=== PATIENT | female | born 1980 | race Caucasian/White ===

== ENCOUNTER 2018-04-13 15:34 | Emergency (ER) | payer OTHER, SELFPAY ==
[2018-04-13 15:40] VITALS: BP 131/87; PULSE 120; RESP 20; TEMP 36.8; O2SAT 100
--- NOTE | 2018-04-13 15:44 | DI.RAD.S_ITS ---
PROCEDURE: XR CHEST 1V INDICATIONS: chest pain TECHNIQUE: One view of the chest was acquired. COMPARISON: [facility], , CHEST 2VW, 07/08/2014, 18:02. FINDINGS: Surgical changes and devices: None. Lungs and pleura: No pleural effusions or pneumothorax. Lungs are clear. Mediastinum: Mediastinal contours appear normal. Heart size is normal. Bones and chest wall: No suspicious bony lesions. Overlying soft tissues appear unremarkable. IMPRESSION: Negative chest. No acute cardiopulmonary process is evident. Dictated by: Javier Harry M.D. on 04/13/2018 at 15:19 Approved by: Javier Harry M.D. on 04/13/2018 at 15:20
[2018-04-13 16:06] LABS: Add Manual Diff / Slide Review NO; Basophils Percent Auto 0.4 % (0-2); Hematocrit 43.5 % (36-46); Lymphocytes Percent Auto 10.3 % (25-40); Mean Corpuscular HGB Conc 34.6 % (30-36); Mean Corpuscular Hemoglobin 31.1 PG (26-34); Mean Corpuscular Volume 90.1 fL (80-100); Monocytes Percent Auto 4.7 % (3-14); Neutrophils Absolute Auto 7000 /uL (1500-7000); Neutrophils Percent Auto 84.6 % (50-75); Platelet Count 317 X10^3/uL (150-400); Red Blood Cell Count 4.83 X10^6/uL (4.0-5.2); Red Cell Distribution Width 12.3 % (11.6-14.8); White Blood Cell Count 8.3 X10^3/uL (4.5-11.0)
[2018-04-13 16:17] LABS: Alanine Aminotransferase 29 IU/L (9-52); Albumin 4.9 g/dL (3.5-5.0); Albumin Globulin Ratio 1.4 (1.0-2.8); Alkaline Phosphatase 55 U/L (38-126); Aspartate Aminotransferase 20 IU/L (14-36); BUN Creatinine Ratio 15.7 (6-22); Bilirubin Total 0.2 mg/dL (0.2-1.3); Blood Urea Nitrogen 11 mg/dL (7-17); Calcium 9.4 mg/dL (8.4-10.2); Carbon Dioxide 28 mmol/L (22-32); Chloride 100 mmol/L (98-107); Estimated Glomerular Filt Rate > 60.0 mL/min (>60); Globulin 3.6 g/dL (1.7-4.1); Glucose 139 mg/dL (70-100); HEMOLYSIS < 15 (0-50); Potassium 3.6 mmol/L (3.4-5.1); Sodium 141 mmol/L (137-145); Total Protein 8.5 g/dL (6.3-8.2)
[2018-04-13] MEDS: MAG HYDROX/ALUMINUM/SIMETH SUS 20 ML, LIDOCAINE VISCOUS 2% 15 ML PO (16:22)
[2018-04-13 16:29] LABS: Troponin I < 0.012 ng/mL (0.01-0.034)
--- NOTE | 2018-04-13 17:08 | PC.NURSE ---
pt states CP has decreased after GI cocktail. provider aware. no new orders at this time.
[2018-04-13] MEDS: PANTOPRAZOLE 20 MG TABLET PO (17:47)
--- NOTE | 2018-04-13 18:07 | ED_ITS ---
HPI - Chest Pain General Chief Complaint: Chest Pain Stated Complaint: SEVERE CHEST PAIN Time Seen by Provider: 04/13/18 17:20 Source: patient Mode of arrival: ambulatory Limitations: no limitations History of Present Illness HPI narrative: This is a 37-year-old female comes to the emergency department with complaint of chest pain. Patient states that she started having symptoms about noon today. Patient states that she had just come back to work she has been on 2 weeks of leave. She has just been local but has been staying up very late and getting up late in the morning and had to switch back to very early mornings today. She drank a very large coffee and shortly afterwards felt very jittery and just not very well in general. Patient states that her symptoms started cause a little bit of stomach discomfort and then she started to feel like she was getting some heartburn. On the drive home a continued to seem worse and worse so she came to the emergency department. She denies any syncope , she denies any dizziness, she denies any shortness of breath, no vomiting. She has had some mild diarrhea but she states that is expected after she normally drinks coffee. Patient has not had any urinary symptoms. She has not had any long distance travel, she does not smoke any tobacco. She drinks very rare alcohol, no illicit. She does have some anxiety which she controls with yoga, essential oils but does not take any medications. She has 7 siblings none who have any cardiac, pulmonary or embolic history. Her dad did have heart attack and had a CABG at the age of 68. Patient had a GI cocktail here which did improve her symptoms but not totally resolve them. She has also been burping a lot. She denies any pain with deep inspiration. She denies any discomfort with her lower extremities. Related Data Previous Rx's Medication Instructions Recorded hydroxyzine HCl 25 mg PO BEDTIME PRN #5 tab 04/13/18 Allergies Allergy/AdvReac Type Severity Reaction Status Date / Time anthrax vaccine Allergy Verified 04/13/18 15:46 Latex, Natural Rubber Allergy Verified 04/13/18 15:46 Review of Systems Review of Systems ROS Unobtainable: All systems reviewed & are unremarkable except as noted in HPI and below Constitutional Denies chills, Denies fatigue, Denies fever(s), Denies lethargy and Denies weakness Cardiovascular Reports chest pain, Denies chest pain with activity, Denies diaphoresis, Denies syncope, Denies rapid heart rate, Denies edema, Denies irregular heart rhythm, Denies lightheadedness, Denies palpitations, Denies dyspnea, Denies dyspnea on exertion and Denies orthopnea Respiratory Denies change in phlegm color, Denies chest congestion, Denies cough, Denies excessive phlegm production, Denies dyspnea and Denies dyspnea on exertion Gastrointestinal Gastrointestinal: Denies abdominal pain, Denies change in bowel habits, Denies constipation, Reports heartburn, Denies diarrhea, Denies nausea and Denies vomiting Genitourinary Denies hematuria, Denies flank pain, Denies urinary incontinence and Denies urinary urgency Musculoskeletal Denies back pain Neurologic Denies syncope and Denies weakness Endocrine Denies fatigue and Denies palpitations PFSH Medical History Anxiety (Acute) Heart burn (Acute) Social History Smoking Status: Never smoker alcohol intake: current substance use type: does not use Exam Narrative Exam Narrative: GENERAL: Alert and oriented x three, well-nourished, well- appearing female in mild distress. HEENT: Head normocephalic, atraumatic, EOMI, pupils reactive, face symmetric, moist mucous membranes NECK: Supple, full range of motion CARDIOVASCULAR: Regular rate and rhythm without murmurs, rubs or gallops. RESPIRATORY: Breath sounds equal bilaterally, no wheezes rales or rhonchi. ABDOMEN: Soft, nontender. Normoactive bowel sounds all 4 quadrants. No guarding or rebound, rigidity, no mass : No CVA tenderness EXTREMITIES: Normal range of motion, no clubbing or edema. Neurovascularly intact NEUROLOGICAL: Cranial nerves II through XII grossly intact. Moving all extremities SKIN: Warm, dry, no petechiae, no rashes or lesions. Initial Vital Signs Initial Vital Signs: Vital Signs Temperature 98.3 F 04/13/18 15:40 Pulse Rate 120 H 04/13/18 15:40 Respiratory Rate 20 04/13/18 15:40 Blood Pressure 131/87 04/13/18 15:40 Pulse Oximetry 100 04/13/18 15:40 Scores HEART Score Heart Score history: Slightly Suspicious Heart Score EKG: Normal Heart Score Age: < 45 years old Heart Score risk factors: 1-2 risk factors Heart Score troponin: < or = to normal limit Heart Score Total: 1 Course Orders Ordered: ED Orders 04/13/18 15:42 EKG-12 Lead Stat 04/13/18 15:44 Chest [XR chest 1V] Stat 04/13/18 15:54 Complete Blood Count AUTO DIFF Stat Comprehensive Metabolic Panel Stat Troponin I Stat Discontinued Medications Al Hydrox/Mg Hydrox/Simethicone 20 ml/ Lidocaine HCl 15 ml 0 ml PO NOW ONE Stop: 04/13/18 16:22 Last Admin: 04/13/18 16:22 Dose: 35 ml Pantoprazole Sodium (Protonix) 20 mg PO NOW ONE Stop: 04/13/18 17:42 Last Admin: 04/13/18 17:47 Dose: 20 mg Vital Signs - 8 hr 04/13/18 15:40 Temperature 98.3 F Pulse Rate 120 H Respiratory Rate 20 Blood Pressure 131/87 Pulse Oximetry 100 MDM - Chest Pain Lab Data Attestation: I reviewed the patient's lab results. Result diagrams: 04/13/18 15:54 04/13/18 15:54 Lab Results 04/13/18 04/13/18 Range/Units 15:54 15:54 WBC 8.3 (4.5-11.0) X10^3/uL RBC 4.83 (4.0-5.2) X10^6/uL Hgb 15.0 (12.0-16.0) g/dL Hct 43.5 (36-46) % MCV 90.1 (80-100) fL MCH 31.1 (26-34) PG MCHC 34.6 (30-36) % RDW 12.3 (11.6-14.8) % Plt Count 317 (150-400) X10^3/uL Neut % (Auto) 84.6 H (50-75) % Lymph % (Auto) 10.3 L (25-40) % [place] % (Auto) 4.7 (3-14) % Eos % (Auto) 0.0 L (2-4) % Baso % (Auto) 0.4 (0-2) % Neut # (Auto) 7000 (6797-8514) /uL Sodium 141 (137-145) mmol/L Potassium 3.6 (3.4-5.1) mmol/L Chloride 100 (98-107) mmol/L Carbon Dioxide 28 (22-32) mmol/L BUN 11 (7-17) mg/dL Creatinine 0.70 (0.52-1.04) mg/dL Estimated GFR > 60.0 (>60) mL/min BUN/Creatinine Ratio 15.7 (6-22) Glucose 139 H (70-100) mg/dL Calcium 9.4 (8.4-10.2) mg/dL Total Bilirubin 0.2 (0.2-1.3) mg/dL AST 20 (14-36) IU/L ALT 29 (9-52) IU/L Alkaline Phosphatase 55 (38-126) U/L Troponin I < 0.012 (0.01-0.034) ng/mL Total Protein 8.5 H (6.3-8.2) g/dL Albumin 4.9 (3.5-5.0) g/dL Globulin 3.6 (1.7-4.1) g/dL Albumin/Globulin Ratio 1.4 (1.0-2.8) Urine Dip Bedside Urine Glucose Negative Bedside Urine Bilirubin - Negative Bedside Urine Ketone - Negative Urine Specific [place] 1.015 Bedside Urine Occult Blood - Negative Bedside Urine pH 5.5 Bedside Urine Protein - Negative Bedside Urine Urobilinogen - Negative Bedside Urine Nitrite - Negative Bedside Urine Leukocytes - Negative Esterase MDM Narrative Medical decision making narrative: Discussed with patient she sounds low risk was improved with a GI cocktail. She would like to return home at this time. We discussed having her restart her Nexium. Decreasing her caffeine intake as she has not been taking drinking any for about 2 weeks and just had a large glass today as this might have been part of her symptoms. Patient can continue times at home. She did ask about taking something to help her sleep tonight we discussed she can try some hydroxyzine or she does not want to fill the prescription could try a dose of Benadryl. Patient does not want anything for anxiety otherwise at this time. We did discuss she needs to follow up. We also discussed there is always risk that there can be a cardiac event or other cause and that she should return if she is having any worsening symptoms. Discharge Plan Departure Patient Disposition: Home Clinical Impression: Chest pain Instructions: DI for Chest Pain Activity Restrictions/Additional Instructions: Follow-up with your primary care in the next week for recheck. Restart your nexium and continue once daily. I also recommend avoiding large amounts of coffee. Return for worsening symptoms, new or worsening chest, shortness of breath, passing out, nausea, persistent vomiting or other new or concerning symptoms. Prescriptions: New hydroxyzine HCl 25 mg tablet 25 mg PO BEDTIME PRN (Reason: anxiety) Qty: 5 RF: 0
[2018-04-13 18:13] VITALS: BP 124/96; PULSE 72; RESP 18; TEMP 37; O2SAT 99
== END 2018-04-13 18:16 | disposition home or self-care (01) ==
PROVIDERS: Emergency Provider Emergency Medicine
DX: R07.9 Chest pain, unspecified (principal)
CPT/HCPCS: 71045; 80053; 81003; 84484; 85025; 93005; 99282; 99285

== ENCOUNTER 2018-12-14 13:28 | Emergency (ER) | payer OTHER, SELFPAY ==
[2018-12-14 13:35] VITALS: BP 120/72; PULSE 62; RESP 14; TEMP 36.7; O2SAT 100; BMI 27.3
[2018-12-14 13:48] LABS: RBC Urine None Seen (0-5/HPF)
[2018-12-14 13:56] LABS: Amorphous Sediment Urine 2+; Squamous Epithelial Cell Urine 1-5 /HPF (0-5/HPF); WBC Urine 1-5/HPF (0-5/HPF)
[2018-12-14 13:57] LABS: Bacteria Urine Few (2-10); Culture Indicated Urine Specimen Cultured; Mucus Urine 1+ (Negative)
--- NOTE | 2018-12-14 14:05 | DI.US.S_ITS ---
PROCEDURE: US ABDOMEN LIMITED INDICATIONS: RIGHT UPPER QUADRANT PAIN TECHNIQUE: Real-time focused scanning was performed of the abdomen, with image documentation. COMPARISON: None. FINDINGS: No gallstones. No gallbladder wall thickening, pericholecystic fluid or sonographic Mortensen's sign. Visualized liver is normal. Common bile duct is normal in caliber measuring 4.7 mm. Pancreas is not well seen. IMPRESSION: Normal gallbladder. No gallstones or findings to suggest acute cholecystitis. No ultrasound findings to explain right upper quadrant pain. Dictated by: Renetta Prescott M.D. on 12/14/2018 at 13:58 Approved by: Renetta Prescott M.D. on 12/14/2018 at 14:00
--- NOTE | 2018-12-14 14:08 | ED_ITS ---
HPI - Abdominal Pain <IKER Anderson - Last Filed: 12/14/18 21:40> General Chief Complaint: Abdominal Pain Stated Complaint: Severe Pain on Right Side Time Seen by Provider: 12/14/18 13:38 Source: patient Mode of arrival: ambulatory History of Present Illness HPI narrative: 38-year-old female presents emergency department today complaining of diarrhea starting this morning around 7:00 a.m. with increasing p ain in her right upper quadrant. She describes the pain as a dull aching /10 and is unsure if she has any aggravating or alleviating symptoms. She states she has associated nausea without vomiting. Patient denies fevers, chills, chest pain, shortness of breath, blood in her stool, headaches, vision changes, orthopnea, dizziness, or syncope. Related Data Home Medications Medication Instructions Recorded Confirmed clindamycin-benzoyl peroxide 1 applic TOPICAL PRN PRN 12/14/18 12/14/18 Previous Rx's Medication Instructions Recorded hydroxyzine HCl 25 mg PO BEDTIME PRN #5 tab 04/13/18 Allergies Allergy/AdvReac Type Severity Reaction Status Date / Time anthrax vaccine Allergy Verified 12/14/18 13:46 Latex, Natural Rubber Allergy Verified 12/14/18 13:46 Review of Systems <IKER Anderson - Last Filed: 12/14/18 21:40> Review of Systems Narrative: REVIEW OF SYSTEMS: GENERAL: Denies fever, chills, malaise, or wt. loss. HENT: No head trauma, sore throat, or dysphagia. EYES: No loss of vision, double vision, eye pain, or irritation. CARDIOVASCULAR: No chest pain, palpitations, or orthopnea. RESPIRATORY: No shortness of breath or cough. GASTROINTESTINAL: Complains of right-sided abdominal pain and diarrhea, see HPI GENITOURINARY: No flank pain, urinary incontinence, hesitancy, frequency, or dysuria. No vaginal discharge or dyspareunia. MUSCULOSKELETAL: No pain, weakness, or trauma. INTEGUMENTARY: No rash, lesions, or pruritus. NEURO: No numbness, tingling, memory loss, confusion, or headaches. PSYCH: No behavior or mood changes. PFSH <IKER Anderson - Last Filed: 12/14/18 21:40> Medical History Anxiety (Acute) Heart burn (Acute) Social History Smoking Status: Never smoker alcohol intake: current substance use type: does not use Social History Smoking Status: Never smoker alcohol intake: current substance use type: does not use Exam <IKER Anderson - Last Filed: 12/14/18 21:40> Initial Vital Signs Initial Vital Signs: Vital Signs Temperature 98.1 F 12/14/18 13:35 Pulse Rate 62 12/14/18 13:35 Respiratory Rate 14 12/14/18 13:35 Blood Pressure 120/72 12/14/18 13:35 Pulse Oximetry 100 12/14/18 13:35 PHYSICAL EXAMINATION: GENERAL: Well groomed, alert, and cooperative. Answers questions promptly and appropriately. Vital signs noted. HENT: Normocephalic, atraumatic. Hearing intact. Oral mucosa is pink and moist. EYES: Conjunctiva pink, sclera white, no periorbital swelling. CARDIOVASCULAR: S1 and S2 sounds normal. Regular rate and rhythm, no murmurs, clicks, or bruits. No pedal edema. RESPIRATORY: Normal respiratory rate, trachea midline, airway patent. No stridor, nasal flaring or accessory muscle use. Lungs are clear in all [place] wi thout wheeze, rhonchi, or crackles. GASTROINTESTINAL: Bowel sounds normoactive. Abdomen is soft, patient complains of right upper quadrant tenderness. No organomegaly, no palpable masses. GENITALURINARY: No flank tenderness. MUSCULOSKELETAL: Normal gait and coordination. Equal tone and mass bilaterally. EXTREMITIES: CMS intact, no pedal edema. SKIN: Warm, dry, soft, appropriate color for ethnicity. No lesions, rashes, or wounds. NEURO: Alert and Oriented X 3. Good coordination. No ataxia, or sensory deficits, or cognitive issues. PSYCH: Appropriate affect and mood. <Em Hayes MD - Last Filed: 12/15/18 07:11> Initial Vital Signs Initial Vital Signs: Vital Signs Temperature 98.1 F 12/14/18 13:35 Pulse Rate 62 12/14/18 13:35 Respiratory Rate 14 12/14/18 13:35 Blood Pressure 120/72 12/14/18 13:35 Pulse Oximetry 100 12/14/18 13:35 Course <IKER Anderson - Last Filed: 12/14/18 21:40> Course Course Narrative: Abdominal ultrasound was ordered due to patient's right upper quadrant pain. Patient denied needing any medications for nausea. Orders Ordered: Discontinued Medications Sodium Chloride (Normal Saline 0.9%) 1,000 mls @ 1,000 mls/hr IV BOLUS ONE Stop: 12/14/18 15:04 Last Infusion: 12/14/18 15:57 Dose: 0 mls/hr Documented by: Admin: 12/14/18 15:01 Dose: 1,000 mls/hr Documented by: ALEXEI Reevaluation(s) Reevaluation #1: Upon re-evaluation, patient stated she was feeling the same. She denied needing any medications at this time. Vital Signs Vital signs: Vital Signs - 8 hr 12/14/18 14:53 12/14/18 15:56 Pulse Rate 65 68 Respiratory Rate 16 14 Blood Pressure 111/65 Blood Pressure [Right Arm] 114/72 Pulse Oximetry 100 100 <Em Hayes MD - Last Filed: 12/15/18 07:11> Orders Ordered: Discontinued Medications Sodium Chloride (Normal Saline 0.9%) 1,000 mls @ 1,000 mls/hr IV BOLUS ONE Stop: 12/14/18 15:04 Last Infusion: 12/14/18 15:57 Dose: 0 mls/hr Documented by: Admin: 12/14/18 15:01 Dose: 1,000 mls/hr Documented by: ALEXEI Vital Signs Vital signs: Vital Signs - 8 hr 12/14/18 14:53 12/14/18 15:56 Pulse Rate 65 68 Respiratory Rate 16 14 Blood Pressure 111/65 Blood Pressure [Right Arm] 114/72 Pulse Oximetry 100 100 MDM - Abdominal Pain <IKER Anderson - Last Filed: 12/14/18 21:40> Medical Records Attestation: I reviewed the patient's medical records. Lab Data Attestation: I reviewed the patient's lab results. Result diagrams: 12/14/18 13:55 12/14/18 13:55 Labs: Lab Results 12/14/18 12/14/18 12/14/18 Range/Units 13:34 13:55 13:55 WBC 5.3 (4.5-11.0) X10^3/uL RBC 4.53 (4.0-5.2) X10^6/uL Hgb 14.1 (12.0-16.0) g/dL Hct 41.0 (36-46) % MCV 90.6 (80-100) fL MCH 31.0 (26-34) PG MCHC 34.3 (30-36) % RDW 12.7 (11.6-14.8) % Plt Count 268 (150-400) X10^3/uL Neut % (Auto) 67.1 (50-75) % Lymph % (Auto) 22.8 L (25-40) % [place] % (Auto) 7.8 (3-14) % Eos % (Auto) 1.8 L (2-4) % Baso % (Auto) 0.5 (0-2) % Neut # (Auto) 3500 (5164-2732) /uL Lymph # (Auto) 1200 (3018-7682) /uL [place] # (Auto) 400 (0-900) /uL Eos # (Auto) 100 (0-450) /uL Baso # (Auto) 0 (0-100) /uL PT 12.1 (10.1-12.7) SECONDS INR 1.0 (0.9-1.3) APTT 38 H (26.4-36.2) SECONDS Sodium (137-145) mmol/L Potassium (3.4-5.1) mmol/L Chloride (98-107) mmol/L Carbon Dioxide (22-32) mmol/L BUN (7-17) mg/dL Creatinine (0.52-1.04) mg/dL Estimated GFR (>60) mL/min BUN/Creatinine Ratio (6-22) Glucose (70-100) mg/dL Calcium (8.4-10.2) mg/dL Total Bilirubin (0.2-1.3) mg/dL AST (14-36) IU/L ALT (9-52) IU/L Alkaline Phosphatase (38-126) U/L Total Protein (6.3-8.2) g/dL Albumin (3.5-5.0) g/dL Globulin (1.7-4.1) g/dL Albumin/Globulin Ratio (1.0-2.8) Lipase (23-300) U/L Urine RBC None seen (0-5/HPF) Urine WBC 1-5/hpf (0-5/HPF) Ur Squamous Epith Cells 1-5 /hpf (0-5/HPF) Amorphous Sediment 2+ Urine Bacteria Few (2-10) H (None) Urine Mucus 1+ H (Negative) Ur Culture Indicated? Specimen cultured 12/14/18 Range/Units 13:55 WBC (4.5-11.0) X10^3/uL RBC (4.0-5.2) X10^6/uL Hgb (12.0-16.0) g/dL Hct (36-46) % MCV (80-100) fL MCH (26-34) PG MCHC (30-36) % RDW (11.6-14.8) % Plt Count (150-400) X10^3/uL Neut % (Auto) (50-75) % Lymph % (Auto) (25-40) % [place] % (Auto) (3-14) % Eos % (Auto) (2-4) % Baso % (Auto) (0-2) % Neut # (Auto) (7454-8096) /uL Lymph # (Auto) (7085-6845) /uL [place] # (Auto) (0-900) /uL Eos # (Auto) (0-450) /uL Baso # (Auto) (0-100) /uL PT (10.1-12.7) SECONDS INR (0.9-1.3) APTT (26.4-36.2) SECONDS Sodium 142 (137-145) mmol/L Potassium 3.8 (3.4-5.1) mmol/L Chloride 105 (98-107) mmol/L Carbon Dioxide 28 (22-32) mmol/L BUN 14 (7-17) mg/dL Creatinine 0.70 (0.52-1.04) mg/dL Estimated GFR > 60.0 (>60) mL/min BUN/Creatinine Ratio 20.0 (6-22) Glucose 104 H (70-100) mg/dL Calcium 9.1 (8.4-10.2) mg/dL Total Bilirubin 0.5 (0.2-1.3) mg/dL AST 29 (14-36) IU/L ALT 28 (9-52) IU/L Alkaline Phosphatase 57 (38-126) U/L Total Protein 7.4 (6.3-8.2) g/dL Albumin 4.3 (3.5-5.0) g/dL Globulin 3.1 (1.7-4.1) g/dL Albumin/Globulin Ratio 1.4 (1.0-2.8) Lipase 67 (23-300) U/L Urine RBC (0-5/HPF) Urine WBC (0-5/HPF) Ur Squamous Epith Cells (0-5/HPF) Amorphous Sediment Urine Bacteria (None) Urine Mucus (Negative) Ur Culture Indicated? Point of care testing: Point of Care Testing Test Results Negative Urine Dip Bedside Urine Glucose Negative Bedside Urine Bilirubin - Negative Bedside Urine Ketone +/- 5 Urine Specific [place] 1.020 Bedside Urine Occult Blood - Negative Bedside Urine pH 6.5 Bedside Urine Protein +/- 15 Bedside Urine Urobilinogen +/- 1mg Bedside Urine Nitrite - Negative Bedside Urine Leukocytes +/- 15 Esterase Imaging Data Abd ultrasound: Radiologist's impression: [place] [address] Ultrasound Report Signed Patient: Julissa Mueller EMR#: [id number] : 1980Acct:[id number] Age/Sex: 38 / FDate of Service: 12/14/18 Loc: ED Accession Number: [id number] Procedure: US abdomen limited Ordering Provider: Martha Domínguez PROCEDURE: US ABDOMEN LIMITED INDICATIONS: RIGHT UPPER QUADRANT PAIN TECHNIQUE: Real-time focused scanning was performed of the abdomen, with image documentation. COMPARISON: None. FINDINGS: No gallstones. No gallbladder wall thickening, pericholecystic fluid or sonographic Mortensen's sign. Visualized liver is normal. Common bile duct is normal in caliber measuring 4.7 mm. Pancreas is not well seen. IMPRESSION: Normal gallbladder. No gallstones or findings to suggest acute cholecystitis. No ultrasound findings to explain right upper quadrant pain. Dictated by: Renetta Prescott M.D. on 12/14/2018 at 13:58 Approved by: Renetta Prescott M.D. on 12/14/2018 at 14:00 [facility] Narrative Medical decision making narrative: Differential includes urinary tract infection (less likely due to lack of symptoms, however due to minor findings and urine sample urine was cultured), cholelithiasis/cholecystitis (less likely due to negative ultrasound, non-remarkable lipase), appendicitis (less likely in due to normal white blood cell count, lack of right lower abdominal pain), renal calculi (less likely due to lack of flank pain), and gastritis (possibly due to short onset and description diarrhea), lactose intolerance (patient was concerned that this may be contributing to her diarrhea). I discussed with patient that further testing was needed to rule out other differential diagnosis. However, patient is hemodynamically stable of able to be discharged home. Strict return precautions given and follow-up instructions discussed. <Em Hayes MD - Last Filed: 12/15/18 07:11> Lab Data Labs: Lab Results 12/14/18 12/14/18 12/14/18 Range/Units 13:34 13:55 13:55 WBC 5.3 (4.5-11.0) X10^3/uL RBC 4.53 (4.0-5.2) X10^6/uL Hgb 14.1 (12.0-16.0) g/dL Hct 41.0 (36-46) % MCV 90.6 (80-100) fL MCH 31.0 (26-34) PG MCHC 34.3 (30-36) % RDW 12.7 (11.6-14.8) % Plt Count 268 (150-400) X10^3/uL Neut % (Auto) 67.1 (50-75) % Lymph % (Auto) 22.8 L (25-40) % [place] % (Auto) 7.8 (3-14) % Eos % (Auto) 1.8 L (2-4) % Baso % (Auto) 0.5 (0-2) % Neut # (Auto) 3500 (9669-4863) /uL Lymph # (Auto) 1200 (6266-0654) /uL [place] # (Auto) 400 (0-900) /uL Eos # (Auto) 100 (0-450) /uL Baso # (Auto) 0 (0-100) /uL PT 12.1 (10.1-12.7) SECONDS INR 1.0 (0.9-1.3) APTT 38 H (26.4-36.2) SECONDS Sodium (137-145) mmol/L Potassium (3.4-5.1) mmol/L Chloride (98-107) mmol/L Carbon Dioxide (22-32) mmol/L BUN (7-17) mg/dL Creatinine (0.52-1.04) mg/dL Estimated GFR (>60) mL/min BUN/Creatinine Ratio (6-22) Glucose (70-100) mg/dL Calcium (8.4-10.2) mg/dL Total Bilirubin (0.2-1.3) mg/dL AST (14-36) IU/L ALT (9-52) IU/L Alkaline Phosphatase (38-126) U/L Total Protein (6.3-8.2) g/dL Albumin (3.5-5.0) g/dL Globulin (1.7-4.1) g/dL Albumin/Globulin Ratio (1.0-2.8) Lipase (23-300) U/L Urine RBC None seen (0-5/HPF) Urine WBC 1-5/hpf (0-5/HPF) Ur Squamous Epith Cells 1-5 /hpf (0-5/HPF) Amorphous Sediment 2+ Urine Bacteria Few (2-10) H (None) Urine Mucus 1+ H (Negative) Ur Culture Indicated? Specimen cultured 12/14/18 Range/Units 13:55 WBC (4.5-11.0) X10^3/uL RBC (4.0-5.2) X10^6/uL Hgb (12.0-16.0) g/dL Hct (36-46) % MCV (80-100) fL MCH (26-34) PG MCHC (30-36) % RDW (11.6-14.8) % Plt Count (150-400) X10^3/uL Neut % (Auto) (50-75) % Lymph % (Auto) (25-40) % [place] % (Auto) (3-14) % Eos % (Auto) (2-4) % Baso % (Auto) (0-2) % Neut # (Auto) (5140-3778) /uL Lymph # (Auto) (6891-0386) /uL [place] # (Auto) (0-900) /uL Eos # (Auto) (0-450) /uL Baso # (Auto) (0-100) /uL PT (10.1-12.7) SECONDS INR (0.9-1.3) APTT (26.4-36.2) SECONDS Sodium 142 (137-145) mmol/L Potassium 3.8 (3.4-5.1) mmol/L Chloride 105 (98-107) mmol/L Carbon Dioxide 28 (22-32) mmol/L BUN 14 (7-17) mg/dL Creatinine 0.70 (0.52-1.04) mg/dL Estimated GFR > 60.0 (>60) mL/min BUN/Creatinine Ratio 20.0 (6-22) Glucose 104 H (70-100) mg/dL Calcium 9.1 (8.4-10.2) mg/dL Total Bilirubin 0.5 (0.2-1.3) mg/dL AST 29 (14-36) IU/L ALT 28 (9-52) IU/L Alkaline Phosphatase 57 (38-126) U/L Total Protein 7.4 (6.3-8.2) g/dL Albumin 4.3 (3.5-5.0) g/dL Globulin 3.1 (1.7-4.1) g/dL Albumin/Globulin Ratio 1.4 (1.0-2.8) Lipase 67 (23-300) U/L Urine RBC (0-5/HPF) Urine WBC (0-5/HPF) Ur Squamous Epith Cells (0-5/HPF) Amorphous Sediment Urine Bacteria (None) Urine Mucus (Negative) Ur Culture Indicated? Point of care testing: Point of Care Testing Test Results Negative Urine Dip Bedside Urine Glucose Negative Bedside Urine Bilirubin - Negative Bedside Urine Ketone +/- 5 Urine Specific [place] 1.020 Bedside Urine Occult Blood - Negative Bedside Urine pH 6.5 Bedside Urine Protein +/- 15 Bedside Urine Urobilinogen +/- 1mg Bedside Urine Nitrite - Negative Bedside Urine Leukocytes +/- 15 Esterase Discharge Plan Departure Patient Disposition: Home Clinical Impression: Diarrhea Qualifiers: Diarrhea type: unspecified type Qualified Code(s): R19.7 - Diarrhea, unspecified Discharge Date/Time: 12/14/18 15:57 Instructions: Diarrhea Activity Restrictions/Additional Instructions: Thank you for entrusting me with your care today. As discussed, your labs were negative for any concerning symptoms. However, there was a small amount of bacteria in your urine. We have sent your urine to be cultured the next 2 days, if it is positive we will call you with a script for antibiotics, if it is negative you will not be called. Please follow up with your primary care provider in the next week for re-evaluation especially if your symptoms are continuing. Return to the emergency department if you develop high fevers, uncontrollable vomiting, chest pain, shortness of breath, or other concerning symptoms. Prescriptions: No Action hydroxyzine HCl 25 mg tablet 25 mg PO BEDTIME PRN (Reason: anxiety) Qty: 5 RF: 0 clindamycin-benzoyl peroxide 1-5 % gel 1 applic TOPICAL PRN PRN (Reason: Acne) RF: 0 Referrals: Carolyn Deluna [Primary Care Provider] -
[2018-12-14 14:14] LABS: Add Manual Diff / Slide Review NO; Basophils Absolute Auto 0 /uL (0-100); Basophils Percent Auto 0.5 % (0-2); Eosinophils Absolute Auto 100 /uL (0-450); Eosinophils Percent Auto 1.8 % (2-4); Hemoglobin 14.1 g/dL (12.0-16.0); Lymphocytes Absolute Auto 1200 /uL (1100-4500); Lymphocytes Percent Auto 22.8 % (25-40); Mean Corpuscular HGB Conc 34.3 % (30-36); Mean Corpuscular Volume 90.6 fL (80-100); Monocytes Absolute Auto 400 /uL (0-900); Monocytes Percent Auto 7.8 % (3-14); Neutrophils Absolute Auto 3500 /uL (1500-7000); Neutrophils Percent Auto 67.1 % (50-75); Platelet Count 268 X10^3/uL (150-400); Prothrombin Time 12.1 SECONDS (10.1-12.7); Red Blood Cell Count 4.53 X10^6/uL (4.0-5.2); Red Cell Distribution Width 12.7 % (11.6-14.8); White Blood Cell Count 5.3 X10^3/uL (4.5-11.0)
[2018-12-14 14:16] LABS: PTT Partial Thromboplastin Tim 38 SECONDS (26.4-36.2)
[2018-12-14 14:20] LABS: Alanine Aminotransferase 28 IU/L (9-52); Albumin 4.3 g/dL (3.5-5.0); Albumin Globulin Ratio 1.4 (1.0-2.8); Alkaline Phosphatase 57 U/L (38-126); Aspartate Aminotransferase 29 IU/L (14-36); Bilirubin Total 0.5 mg/dL (0.2-1.3); Blood Urea Nitrogen 14 mg/dL (7-17); Calcium 9.1 mg/dL (8.4-10.2); Carbon Dioxide 28 mmol/L (22-32); Chloride 105 mmol/L (98-107); Estimated Glomerular Filt Rate > 60.0 mL/min (>60); Globulin 3.1 g/dL (1.7-4.1); Glucose 104 mg/dL (70-100); HEMOLYSIS 16 (0-50); Lipase 67 U/L (23-300); Potassium 3.8 mmol/L (3.4-5.1); Sodium 142 mmol/L (137-145); Total Protein 7.4 g/dL (6.3-8.2)
[2018-12-14 14:53] VITALS: BP 114/72; PULSE 65; RESP 16; O2SAT 100
[2018-12-14] MEDS: SODIUM CHLORIDE 0.9% 1,000 ML 1000 ML IV (15:01)
[2018-12-14 15:56] VITALS: BP 111/65; PULSE 68; RESP 14; O2SAT 100
== END 2018-12-14 15:57 | disposition home or self-care (01) ==
PROVIDERS: Emergency Medicine; Emergency Provider Nurse Practitioner; PCP Student in an Organized Health Care Education/Training Program
DX: R19.7 Diarrhea, unspecified (principal)
CPT/HCPCS: 36591; 76705; 80053; 81003; 81015; 81025; 83690; 85025; 85610; 85730; 87077; 87086; 93005; 93010; 96360; 99283; 99285